=== PATIENT | female | born 1990 | race Two or more races ===

== ENCOUNTER 2016-07-14 19:09 | Emergency (ER) | payer OTHER ==
[~2016-07-14] VITALS: Ht 157.5 cm; Wt 77.1 kg
[2016-07-14 19:32] VITALS: BP 147/88
[2016-07-14] MEDS ORDERED: IBUPROFEN 600 MG TABLET PO ONE ×2 (20:30→21:01)
== END 2016-07-14 21:24 | disposition home or self-care (01) ==
LOC: ER 19:16
DX: M79.602 Pain in left arm (principal); M79.601 Pain in right arm; M79.645 Pain in left finger(s); M79.644 Pain in right finger(s)
CPT/HCPCS: 73130; 99284; A4606; Z7610